=== PATIENT | female | born 1990 | race Caucasian/White ===

== ENCOUNTER 2017-02-10 18:40 | Emergency (ER) | payer OTHER ==
--- NOTE | 2017-02-10 20:09 | ERNOTE ---
ENT HPI Date of Service: 02/10/17 Presenting Symptoms: dental pain, other - right oriental orthodox/maxillary jaw and upper tooth pain Time Seen by Provider: 02/10/17 19:05 Source: patient Exam Limitations: no limitations - Immun/Allergies/Home Medications Immunizations: IMMUNIZATION HX Immunizations Up to Date No History of Influenza Vaccine No Hx Pneumococcal Vaccination No Allergies/Adverse Reactions: Allergies Allergy/AdvReac Type Severity Reaction Status Date / Time amoxicillin Allergy Verified 11/04/15 05:29 Home Medications: HOME MEDICATIONS Ibuprofen [Motrin] 800 mg PO Q6H PRN #0 tablet 10/03/16 [Last Taken 02/10/17 10: 30] Carbamide Peroxide [Debrox] 4 drop LEFT EAR Q48H PRN #15 ml 02/10/17 [Last Taken Unknown] Carbamide Peroxide [Debrox] 4 drop RIGHT EAR Q48H PRN #15 ml 02/10/17 [Last Taken Unknown] HYDROcodone/ACETAMINOPHEN [[place] 5-325] 1 each PO Q6H PRN #20 tablet 02/10/17 [ Last Taken Unknown] - Pain Score Pain Score #1 Pain Score: 9 - History of Present Illness Narrative: Patient is a 26 year old female who presents to ED with complaints of right oriental orthodox/right upper jaw and right ear pain. Patient states she awoke with right oriental orthodox pain yesterday which resolved with Ibuprofen. Pain has since radiated into right upper jaw and right ear. Complains of pain to right upper jaw, pain to teeth #12 and #17 and constant pressure in right ear. Attempted OTC ear wax remover to right ear canal [employer]. Has been waiting to hear back from the dentist for chipped tooth #12. Date (Duration): 02/10/17 Severity: Present: mild ENT Location: Present: ear (R), dental Prearrival Treatment: Present: over the counter meds Modifying Factors - Improves: Reports: medication Associated Symptoms - ENT: Reports: tooth pain, change in hearing, headache. Denies: fever, malaise, poor fluid intake, poor solid intake, cough, voice change, sore throat, drooling, nasal congestion/drainage, facial pain/swelling, jaw swelling, ear drainage, foreign body, trauma Prior Treament: Reports: similar symptoms before Review of Systems - Review of Systems Constitutional: Present: no symptoms reported. Absent: fever, chills, weakness , fatigue, malaise, weight loss EYE: Present: no symptoms reported ENT: Present: ear pain - right ear pain. Absent: ear discharge, pulling on ears , nose pain, nose congestion, nasal drainage, sore throat, throat swelling Respiratory: Present: no symptoms reported. Absent: shortness of breath, cough Cardiology: Present: no symptoms reported Gastrointestinal/Abdominal: Present: no symptoms reported Genitourinary: Present: no symptoms reported Musculoskeletal: Present: no symptoms reported Skin: Present: no symptoms reported Neurological: Present: no symptoms reported Endocrine: Present: no symptoms reported Hematologic/Lymphatic: Present: no symptoms reported Psych: Present: no symptoms reported - Social History Living Situations: home Smoking Status: Current every day smoker - Immunizations Immunizations Up to Date: No Hx Pneumococcal Vaccination: No History of Influenza Vaccine: No Physical Exam - Physical Exam General Appearance: Present: wd/wn, alert, no apparent distress Eye Exam: Normal inspection: bilateral, PERRL: bilateral Ears, Nose, Throat: Present: hearing decreased, cerumen impaction - bilateral, unable to assess TM, normal pharynx. Absent: pharyngeal erythema, pharyngeal swelling, tonsillar exudate, tonsillar swelling Neck: Present: normal inspection, nontender, supple, full range of motion Respiratory: Present: no respiratory distress, normal breath sounds, no accessory muscle use, chest nontender, lungs clear Cardiovascular/Chest: Present: regular rate, rhythm, no murmur, normal peripheral pulses Peripheral Pulses: N=norm/S=strong/W=weak/B=bound/A=absent: Radial (R): Normal, Radial (L): Normal Gastrointestinal/Abdominal: Present: normal bowel sounds, nontender, nondistended, soft, no organomegaly Rectal Exam: Present: deferred Back Exam: Present: normal inspection, normal range of motion, no CVA tenderness , no vertebral tenderness Extremity Exam: Present: normal inspection, non-tender, normal range of motion, no edema Neurological Exam: Present: alert, oriented, normal mood/affect, no motor/ sensory deficits Skin Exam: Present: normal color, warm/dry Lymphatic Exam: Present: no adenopathy ED Progress - Vital Signs Patient's Vital Signs:: I have reviewed the patient's vital signs. Vital Signs: Vital Signs 02/10/17 18:47 Temperature 37 C Pulse Rate 104 H Respiratory 15 Rate Blood Pressure 149/85 O2 Sat by Pulse 99 Oximetry - Progress/Reassessment Chief Complaint: Dental Problem Progress:: Improved Progress Note-Subjective: 02/10/17 20:24 Large amounts of cerumen removed with curette from right ear canal. Unable to visualize TM due to continued wax. RN irrigated left ear canal with water/ hydrogen peroxide and large amounts of cerumen removed. Unable to visualize TM due to wax Departure Clinical Impression: Pain, dental, Excessive cerumen in both ear canals - Departure Disposition: Home Follow Up Needed Condition: Good Instructions: Earwax Buildup, Dental Care and Dentist Visits Additional Instructions: Make appointment Sunday with dentist. Ibuprofen 600 mg every 6-8 hours as needed for dental pain, use [place] sparingly for severe pain. Debrox drops to bilateral ears for excessive wax Prescriptions: Carbamide Peroxide [Debrox] 4 drop LEFT EAR Q48H PRN #15 ml PRN Reason: Ear Wax Carbamide Peroxide [Debrox] 4 drop RIGHT EAR Q48H PRN #15 ml PRN Reason: Ear Wax HYDROcodone/ACETAMINOPHEN [[place] 5-325] 1 each PO Q6H PRN #20 tablet PRN Reason: Pain
[2017-02-10 20:46] VITALS: BP 120/84
== END 2017-02-10 20:24 | disposition home or self-care (01) ==
LOC: ER 18:40
DX: H61.23 Impacted cerumen, bilateral (principal); K08.89 Other specified disorders of teeth and supporting structures; F17.210 Nicotine dependence, cigarettes, uncomplicated